=== PATIENT | female | born 1990 | race Caucasian/White ===

== ENCOUNTER → 2016-10-24 | Outpatient (CLI) | payer OTHER | LOC: LAB.O 11:14 | PROVIDERS: ATTEND Obstetrics & Gynecology | DX: Z34.82 Encounter for supervision of other normal pregnancy, second trimester (principal) ==

== ENCOUNTER 2020-08-20 10:55 | Emergency (ER) | payer OTHER, SELFPAY ==
[2020-08-20] MEDS ORDERED: predniSONE 20 MG TAB PO ONE (11:21)
[2020-08-20 11:52] VITALS: O2SAT 99
--- NOTE | 2020-08-20 12:33 | CT ---
EXAM DESCRIPTION: Head CLINICAL HISTORY: near syncope COMPARISON: None TECHNIQUE: Noncontrast transaxial CT images of the head are obtained from base to vertex. This exam was performed according to our departmental dose-optimization program, which includes automated exposure control, adjustment of the mA and/or kV according to patient size and/or use of iterative reconstruction technique. FINDINGS: The midline structures are not displaced. The sulci are age appropriate. The lateral, third, and fourth ventricles are normal in size, shape, and anatomic positioning. There is no evidence of mass, mass effect, hydrocephalus, or acute intracranial hemorrhage. No abnormal extra axial fluid collections are seen. Normal porter-white differentiation is seen. The visualized bone windows show no depressed skull fracture or significant abnormality. The visualized paranasal sinuses and mastoid air cells are clear. IMPRESSION: 1. No acute abnormality is seen on noncontrast CT of the head. Electronically signed by: Masood Aguayo MD 08/20/2020 12:31 PM [facility]
--- NOTE | 2020-08-20 12:36 | RAD ---
EXAM DESCRIPTION: Abdomen Series CLINICAL HISTORY: 30 years Female, rt sided abd discomfort 1 week COMPARISON: None. TECHNIQUE: 3 view radiograph of the chest and abdomen. IMPRESSION: Scattered basal atelectasis. Normal heart size. No pleural effusion or pneumothorax. Large amount stool within the ascending colon which may be seen with constipation or obstipation. Remaining colon distally is decompressed. No pathologic calcification overlying the renal shadows or expected course of the ureters. Surgical clips in the right upper abdomen likely from prior cholecystectomy. Unremarkable included osseous structures. Electronically signed by: Moustapha Ferrer MD 08/20/2020 12:34 PM [facility]
--- NOTE | 2020-08-20 14:14 | ED.PDOC ---
History of Present Illness - General Chief Complaint: General Stated Complaint: BURT, diff swallowing, shaking, head congestion, anx Time Seen by Provider: 08/20/20 10:59 Source: patient Exam Limitations: no limitations - History of Present Illness Initial Comments: The patient is a 30-year-old female presented emergency room secondary to having had a syncopal episode at the clinic this morning. The patient was undergoing a clinic visit when she apparently became very anxious with the blood draw and passed out. She actually stayed out for a fairly significant period of time. She was monitored with pulse oximetry and blood pressures which were essentially normal. She did have a glucose that was also normal. 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 Additionally she has longstanding anxiety for which she takes daily clonazepam. She has been out of her clonazepam for 2 days. No definite history of any seizure disorder. She does not think she took her steroid this morning either. She has been on steroids for the Christiansen's palsy for several months. Upon arrival here the patient makes very poor eye contact and is shaky. Vital signs are stable. Physical exam shows no focal findings. Eye contact is poor. Mentation seems a little bit slow. No nuchal rigidity. She does report some pain to the left posterior head since the event. It was not present prior. Report from the clinic shows that she did not actually fall and hit her head in any way. There was no definite seizure type activity noted over there. She has had no significant alteration mental status since arrival here either. No fever. No sore throat or runny nose. The patient was unable to get her clonazepam filled yesterday secondary to the pharmacy not having any. The patient also reports some mild vague right-sided discomfort for the last couple of days. Timing/Duration: momentarily Severity: moderate Improving Factors: rest Worsening Factors: nothing Associated Symptoms: headaches Allergies/Adverse Reactions: Allergies Penicillins Allergy (Verified 08/20/20 12:09) Sulfamethoxazole w/Trimethoprim [From Bactrim] Allergy (Verified 08/20/20 12:09) Ketorolac Tromethamine [From Toradol] Adverse Reaction (Verified 08/20/20 12:09) Nitrogen Oxide Adverse Reaction (Verified 08/20/20 11:52) Promethazine [From Phenergan] Adverse Reaction (Verified 08/20/20 11:52) Home Medications: Ambulatory Orders Clonazepam 0.25 mg PO DAILY 08/20/20 Prednisone 10 mg PO DAILY 08/20/20 Review of Systems - Review of Systems Constitutional: States: malaise EENTM: States: no symptoms reported Respiratory: States: no symptoms reported Cardiology: States: no symptoms reported Gastrointestinal/Abdominal: States: no symptoms reported Genitourinary: States: no symptoms reported Musculoskeletal: States: no symptoms reported Skin: States: no symptoms reported Neurological: States: anxiety, headache, other - Resolving Christiansen's palsy on the left Endocrine: States: no symptoms reported All other Systems: No Change from Baseline Past Medical History (General) - Patient Medical History Hx of COPD: No Hx Cardiac Disorders: No Hx Congestive Heart Failure: No Hx Hypertension: No Hx Thyroid Disease: Yes Hx Diabetes: No Hx Renal Disease: No Hx Cancer: No Surgical History: other - Vaccination History Hx Influenza Vaccination: No Hx Pneumococcal Vaccination: No - Social History Hx Tobacco Use: No Hx Alcohol Use: No Hx Substance Use: No Hx Substance Use Treatment: No Hx Depression: Yes - Female History Patient is a Female of Child Bearing Age (10 -59 yrs old): No Hx Last Menstrual Period: 11/18/14 Patient : No - Denies Expected Date of Delivery:: 09/04/14 Family Medical History - Family History Mother Age (years): 40 Living Status: Still Living Hx Family Asthma: No Hx Family Congestive Heart Failure: No Hx Family Hypertension: Yes Age of Onset (years of age): unk Hx Family Stroke: No Hx Cardiac Disease: No Hx Family Diabetes: No Hx Family Cancer: No Maternal Grandparents Age (years): 70s Living Status: Still Living Hx Family Asthma: No Hx Family Congestive Heart Failure: No Hx Family Hypertension: No Hx Family Stroke: No Hx Cardiac Disease: No Hx Family Diabetes: Yes - grandmother Hx Family Cancer: Yes - breast Age of Onset (years of age): unk Father Age (years): 67 Living Status: Still Living Hx Family Asthma: Yes Age of Onset (years of age): unk Hx Family Congestive Heart Failure: Yes Age of Onset (years of age): 40 Hx Family Hypertension: Yes Age of Onset (years of age): 40 Hx Family Stroke: Yes Age of Onset (years of age): 40 Hx Cardiac Disease: Yes Age of Onset (years of age): 40 Hx Family Diabetes: No Hx Family Cancer: Yes - skin Age of Onset (years of age): unk Physical Exam - Physical Exam General Appearance: Alert, Other - Shaky. Mentation seems slowed. No obvious incorrect answers to questions however. No nuchal rigidity or meningeal signs. Eye Exam: bilateral normal Ears, Nose, Throat: hearing grossly normal, normal pharynx Neck: full range of motion, supple Respiratory: lungs clear, normal breath sounds, no respiratory distress, no accessory muscle use Cardiovascular/Chest: normal peripheral pulses, regular rate, rhythm, no edema Peripheral Pulses: radial,right: 2+, radial,left: 2+ Gastrointestinal/Abdominal: non tender, soft Rectal Exam: deferred Back Exam: no CVA tenderness, no vertebral tenderness Extremity: non-tender, normal inspection, no pedal edema, normal capillary refill Neurologic: horse breaker II-XII nml as tested - Nearly resolved Christiansen's palsy, alert, oriented x 3, other - See above Skin Exam: normal color Comments: Vital Signs - 24 hr 08/20/20 08/20/20 10:55 10:56 Temperature 98.9 F Pulse Rate [ 89 89 Pulse ox] Respiratory 24 24 Rate Blood Pressure 169/102 [L arm] O2 Sat by Pulse 99 Oximetry Progress - Progress Progress: 08/20/20 14:17 The patient is a 30-year-old female presented emergency room after syncopal episode at the clinic. This may have to do with benzodiazepine withdrawal on this patient. Thyroid function tests appear reassuring. Other blood levels appear reassuring. We did send off a prolactin level and a cortisol level on this patient. She does need to take her steroids regularly and at least for now try not to miss doses of her clonazepam. We have called [facility] and they do have her prescription ready. Vital signs have remained stable here and all imaging and laboratory work are otherwise reassuring. She does have some constipation and did receive a dose of milk of magnesia. This may improve some of the discomfort to her stomach she has been feeling for the last few days. Follow back up with primary care doctor next week. ER warnings are given for any significant worsening. jose m jay [phone] 08/20/20 14:19 - Results/Orders Results/Orders: Prolactin and cortisol levels are send outs. Head CT shows no acute intracranial pathology. Acute abdominal series shows some constipation. Rapid coronavirus is negative. EKG shows normal sinus rhythm 84 bpm. Normal axis. Normal R wave progression. Borderline QT interval. Mild left atrial dilation. No ST segment or T wave changes indicative of acute ischemia Laboratory Results - last 24 hr 08/20/20 08/20/20 08/20/20 11:20 11:20 11:20 WBC 11.0 H RBC 4.43 Hgb 14.2 Hct 41.5 MCV 93.7 MCH 32.0 H MCHC 34.1 RDW 13.6 Plt Count 229 MPV 7.7 Absolute Neuts (auto) 9.80 H Absolute Lymphs (auto) 0.90 L Absolute Monos (auto) 0.20 Absolute Eos (auto) 0.00 Absolute Basos (auto) 0.00 Neutrophils % 89.6 H Lymphocytes % 8.0 L Monocytes % 1.9 L Eosinophils % 0.1 L Basophils % 0.4 Sodium 139 Potassium 3.3 L Chloride 105 Carbon Dioxide 24 Anion Gap 13.3 BUN 9 Creatinine 0.69 BUN/Creatinine Ratio 13.0 POC Glucose Random Glucose 122 H Serum Osmolality 277.5 Lactic Acid 2.0 Calcium 8.7 Magnesium 2.1 Total Bilirubin 1.4 H AST 25 ALT 26 Alkaline Phosphatase 57 Creatine Kinase 101 CK-MB (CK-2) 1.7 CK-MB (CK-2) % Not Reportable Troponin I < 0.02 Serum Total Protein 7.6 Albumin 4.4 Globulin 3.2 Albumin/Globulin Ratio 1.4 TSH 1.36 Free T4 Serum HCG, Qual Urine Color Urine Appearance Urine pH Ur Specific [place] Urine Protein Urine Glucose (UA) Urine Ketones Urine Blood Urine Nitrite Urine Bilirubin Urine Urobilinogen Ur Leukocyte Esterase Urine RBC Urine WBC Ur Epithelial Cells Urine Bacteria 08/20/20 08/20/20 08/20/20 11:20 11:20 11:20 WBC RBC Hgb Hct MCV MCH MCHC RDW Plt Count MPV Absolute Neuts (auto) Absolute Lymphs (auto) Absolute Monos (auto) Absolute Eos (auto) Absolute Basos (auto) Neutrophils % Lymphocytes % Monocytes % Eosinophils % Basophils % Sodium Potassium Chloride Carbon Dioxide Anion Gap BUN Creatinine BUN/Creatinine Ratio POC Glucose 121 H Random Glucose Serum Osmolality Lactic Acid Calcium Magnesium Total Bilirubin AST ALT Alkaline Phosphatase Creatine Kinase CK-MB (CK-2) CK-MB (CK-2) % Troponin I Serum Total Protein Albumin Globulin Albumin/Globulin Ratio TSH Free T4 1.17 Serum HCG, Qual Negative Urine Color Urine Appearance Urine pH Ur Specific [place] Urine Protein Urine Glucose (UA) Urine Ketones Urine Blood Urine Nitrite Urine Bilirubin Urine Urobilinogen Ur Leukocyte Esterase Urine RBC Urine WBC Ur Epithelial Cells Urine Bacteria 08/20/20 12:05 WBC RBC Hgb Hct MCV MCH MCHC RDW Plt Count MPV Absolute Neuts (auto) Absolute Lymphs (auto) Absolute Monos (auto) Absolute Eos (auto) Absolute Basos (auto) Neutrophils % Lymphocytes % Monocytes % Eosinophils % Basophils % Sodium Potassium Chloride Carbon Dioxide Anion Gap BUN Creatinine BUN/Creatinine Ratio POC Glucose Random Glucose Serum Osmolality Lactic Acid Calcium Magnesium Total Bilirubin AST ALT Alkaline Phosphatase Creatine Kinase CK-MB (CK-2) CK-MB (CK-2) % Troponin I Serum Total Protein Albumin Globulin Albumin/Globulin Ratio TSH Free T4 Serum HCG, Qual Urine Color Yellow Urine Appearance Sl cloudy Urine pH 7.0 Ur Specific [place] 1.015 Urine Protein Negative Urine Glucose (UA) Negative Urine Ketones Negative Urine Blood Negative Urine Nitrite Negative Urine Bilirubin Negative Urine Urobilinogen 0.2 Ur Leukocyte Esterase Trace H Urine RBC 1-3 Urine WBC 5-10 H Ur Epithelial Cells 5-10 Urine Bacteria 2+ H - EKG/XRAY/CT CT Ordered: Yes Departure - Departure Clinical Impression: Syncope Qualifiers: Syncope type: unspecified Qualified Code(s): R55 - Syncope and collapse Constipation Qualifiers: Constipation type: unspecified constipation type Qualified Code(s): K59.00 - Constipation, unspecified Disposition: Discharge to Home or Self Care Condition: Fair Departure Forms: ED Discharge - Pt. Copy, Patient Portal Self Enrollment Diet: regular diet - High-fiber Activity: increase activity as tolerated Referrals: Miguel Alegre MD [Primary Care Provider] - 1-2 Weeks Home Medications: Ambulatory Orders Clonazepam 0.25 mg PO DAILY 08/20/20 Prednisone 10 mg PO DAILY 08/20/20 Additional Instructions: The patient is a 30-year-old female presented emergency room after syncopal episode at the clinic. This may have to do with benzodiazepine withdrawal on this patient. Thyroid function tests appear reassuring. Other blood levels appear reassuring. We did send off a prolactin level and a cortisol level on this patient. She does need to take her steroids regularly and at least for now try not to miss doses of her clonazepam. We have called [facility] and they do have her prescription ready. Vital signs have remained stable here and all imaging and laboratory work are otherwise reassuring. She does have some constipation and did receive a dose of milk of magnesia. This may improve some of the discomfort to her stomach she has been feeling for the last few days. Follow back up with primary care doctor next week. ER warnings are given for any significant worsening.
[2020-08-20] MEDS: MAGNESIUM HYDROXIDE 30 ML UD PO ONE ×2 (14:30→14:33)
[2020-08-20 14:35] VITALS: BP 121/79; TEMP 98.3
== END 2020-08-20 14:35 | disposition home or self-care (01) ==
LOC: ER 10:55
DX: R55 Syncope and collapse (principal); K59.00 Constipation, unspecified; R51.9 Headache, unspecified; F41.9 Anxiety disorder, unspecified; G51.0 Bell's palsy; F32.9 Major depressive disorder, single episode, unspecified; E07.9 Disorder of thyroid, unspecified; Z20.822 Contact with and (suspected) exposure to COVID-19; Z88.2 Allergy status to sulfonamides; Z88.8 Allergy status to other drugs, medicaments and biological substances; Z88.0 Allergy status to penicillin; Z79.899 Other long term (current) drug therapy
CPT/HCPCS: 36415; 36416; 70450; 74019; 80053; 81001; 82550; 82553; 82948; 83605; 83735; 84439; 84443; 84484; 84703; 85025; 87502; 87635; 93005; J7512